=== PATIENT | female | born 1985 | race Caucasian/White ===

== ENCOUNTER 2019-05-22 16:34 | Outpatient (CLI) | payer BC ==
[~2019-05-22 16:34] MED LIST: CIPROFLOXACIN500 M2 ORAL; PRILOSEC20 MG ORAL; ZOFRAN ODT4 MG ORAL; ZOFRAN ODT8 MG ORAL
--- NOTE | 2019-05-23 10:45 | Diagnostic Imaging Report ---
Indications: Pain, status post fall Technique: Two views of the right femur Comparison: None Findings: No acute fractures. No dislocations. The joint spaces are preserved. Impression: Negative
--- NOTE | 2019-05-23 10:45 | Diagnostic Imaging Report ---
Indication: Pelvic pain, status post fall Technique: One view of the pelvis Comparison: none Findings: No acute fractures. No dislocations. The joint spaces are preserved. Alignment is normal. Impression: Negative
--- NOTE | 2019-05-23 10:45 | Diagnostic Imaging Report ---
Indication: Chest pain, status post fall Technique: One view of the chest, 2 views of the right ribs Comparison: none Findings: Chest radiograph demonstrates clear lungs. No infiltrates, effusions, congestion. Normal heart size. No evidence of rib fracture. No pneumothorax Impression: Negative
== END 2019-05-22 18:34 | disposition home or self-care (01) ==
LOC: RAD 16:34
DX: S70.01XA Contusion of right hip, initial encounter (principal); S20.219A Contusion of unspecified front wall of thorax, initial encounter; X58.XXXA Exposure to other specified factors, initial encounter; Y92.9 Unspecified place or not applicable
CPT/HCPCS: 71111; 72170